=== PATIENT | male | born 1950 | race Caucasian/White ===

== ENCOUNTER 2017-01-04 14:25 | Emergency (ER) | payer OTHER, MEDICARE ==
[~2017-01-04] VITALS: Ht 167.6 cm; Wt 83.5 kg
[~2017-01-04 14:25] MED LIST: ACTOS30 MG PO; APIX5T PO; ATORVASTATIN CA40 MG PO; ELIQUIS5 MG PO; METFORMIN1000 MG PO; NORVASC 5MG TAB5 MG PO; ZESTORETIC 25 M1 TAB PO
[2017-01-04 15:25] LABS: ABSOLUTE BASOPHIL COUNT 0.1 /CUMM (0.0-0.2); ABSOLUTE EOSINOPHIL COUNT 0 /CUMM (0.0-0.7); ABSOLUTE GRANULOCYTE CT 9.8 /CUMM (1.4-6.5); ABSOLUTE LYMPH COUNT 1.5 /CUMM (1.2-3.4); BASOPHIL % 0.9 % (0.0-2.0); EOSINOPHIL % 0.1 % (0-5); GRANULOCYTE % 79.2 % (42.2-75.2); HEMATOCRIT 40.7 % (42-52); MEAN CORPUSCULAR HGB 28.3 PG (27.0-31.0); MEAN CORPUSCULAR HGB CONC 33.6 G/DL (33.0-37.0); MEAN CORPUSCULAR VOLUME 84.3 FL (80.0-94.0); MEAN PLATELET VOLUME 8.1 FL (7.4-10.4); PLATELET COUNT 277 /CUMM (130-400); RBC DISTRIBUTION WIDTH 16.1 % (11.5-14.5); RED BLOOD CELL CT 4.83 /CUMM (4.70-6.10); WHITE BLOOD CELL COUNT 12.4 /CUMM (4.8-10.8)
--- NOTE | 2017-01-04 16:31 | ED GI/GU/ABDOMINAL COMPLAINT ---
History of Present Illness General Chief Complaint: Male Genitourinary Problems Stated Complaint: ?KIDNEY STONE, HEMATURIA Source: patient, old records Exam Limitations: no limitations Vital Signs & Intake/Output Vital Signs & Intake/Output Vital Signs Date Time Temp Pulse Resp B/P B/P Pulse O2 O2 Flow FiO2 Mean Ox Delivery Rate 01/04 2046 99.6 101 20 128/71 96 Room Air 01/04 1857 99.2 94 18 136/68 97 Room Air ED Intake and Output 01/05 0000 01/04 1200 Intake Total Output Total 100 Balance -100 Output, Urine 100 Patient 184 lb Weight Weight Reported by Patient Measurement Method Allergies Coded Allergies: NO KNOWN ALLERGIES (07/12/15) Reconcile Medications Amlodipine Besylate 5 MG TABLET 1 TAB PO DAILY BP (Reported) Aspirin (Ecotrin*) 81 MG TABLET.DR 1 TAB PO DAILY HEART/BLOOD (Reported) Atorvastatin Calcium 40 MG TABLET 1 TAB PO DAILY CHOLESTEROL (Reported) Levofloxacin (Levaquin) 500 MG TABLET 1 TAB PO DAILY epididymitis Lisinopril/Hydrochlorothiazide (Lisinopril-Hctz 20-25 MG Tab) 20 MG-25 MG TABLET 1 TAB PO DAILY BP (Reported) Metformin HCl 1,000 MG TABLET 1 TAB PO BID DM (Reported) Pioglitazone HCl 30 MG TABLET 1 TAB PO DAILY DM (Reported) Sildenafil Citrate (Viagra) 100 MG TABLET 1 TAB PO PRN ED (Reported) 1 hour before sexual activity Triage Note: PT STATES HE HAS FLEX OF BLOOD IN HIS URINE STATES 30 YEARS AGO HE HAD PROSTATITIS AND IS WONDERING IF HE HAS IT AGAIN. PT C/O RIGHT FLANK PAIN STATES HE WAS FINE UNTIL WEDNESDAY. Triage Nurses Notes Reviewed? yes HPI: Patient is a 66-year-old male presents complaining of hematuria. Patient reports hematuria onset 2-3 days ago. Mild right inguinal pain and mild right testicular pain. Patient takes 81 mg of aspirin daily. Patient reports that pain mildly increases when he has a bowel movement. Patient had prostatitis 30 years ago, reports that his pain was significantly more severe at that time. Patient denies fevers, chills, nausea, vomiting, dysuria, frequency. (LAURA VALLADARES,SHELBY) Past History Travel History Traveled to [place] past 21 day No Medical History Any Pertinent Medical History? 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 MOTHER (Breast cancer). FATHER (Colon cancer at age 70). Hx Contributory? No (SHELBY VICKERS) Review of Systems Review of Systems Constitutional: Denies: chills, fever. EENTM: Reports: no symptoms. Respiratory: Denies: cough, short of breath. Cardiovascular: Denies: chest pain. GI: Reports: see HPI. Genitourinary: Reports: see HPI. Musculoskeletal: Reports: no symptoms. Denies: back pain. Skin: Reports: no symptoms. Neurological/Psychological: Reports: no symptoms. Hematologic/Endocrine: Reports: see HPI. Immunologic/Allergic: Reports: no symptoms. (SHELBY VICKERS) Physical Exam Physical Exam General Appearance: well developed/nourished, alert, awake Head: atraumatic, normal appearance Eyes: Bilateral: normal appearance, PERRL, EOMI. Ears, Nose, Throat, Mouth: hearing grossly normal, moist mucous membrane Neck: normal inspection, supple, full range of motion Respiratory: normal breath sounds, chest non-tender, no respiratory distress, lungs clear Cardiovascular: regular rate/rhythm Gastrointestinal: normal bowel sounds, soft, mild right inguinal tenderness. No palpable masses or hernias Rectal: normal inspection, prostate exam unremarkable Male Genitals: normal genitalia, mild right testicular tenderness. No epididymal tenderness Back: normal inspection, normal range of motion Extremities: normal range of motion Neurologic/Psych: no motor/sensory deficits, awake, alert, oriented x 3, normal gait, normal mood/affect Skin: intact, normal color, warm/dry Core Measures ACS in differential dx? No Severe Sepsis Present: No Septic Shock Present: No (SHELBY VICKERS) Progress Differential Diagnosis: AAA, epididymitis, orchitis, prostatitis, ureterolithiasis, urethritis, UTI/pyelo, malignancy Diagnostic Imaging: Viewed by Me: Ultrasound. Discussed w/RAD: Ultrasound. Radiology Impression: PATIENT: ANTHONY LEO PRESENT AGE: 66 PATIENT ACCOUNT NO: [id number] : 51 LOCATION: [facility] ORDERING PHYSICIAN: SHELBY VALLADARES SERVICE DATE: 01/04/17 EXAM TYPE: US - US-TESTICULAR EXAMINATION: ULTRASOUND SCROTUM CLINICAL INFORMATION: Right testicular pain COMPARISON: None. TECHNIQUE: Routine scrotal ultrasound with grayscale and spectral and color Doppler. FINDINGS: Testicle: There is homogeneous echotexture of the right and left testicle. No focal lesion. Doppler demonstrates arterial and venous vascular flow in both testicles. Right testicle : 3.8 x 2.6 x 3.5 cm. Volume 24.6 mL Left testicle: 3.8 x 2.1 x 2.9 cm. Volume 16.4 mL Epididymis: There is mild increased vascularity in the head of the right epididymis consistent with epididymitis. The size of the right and the left epididymis is normal and symmetric bilateral. Varices: There is no varices. Hydrocele: Small anechoic right-sided hydrocele. Scrotal wall: Unremarkable. IMPRESSION: 1. Normal ultrasound of right and left testicle. 2. Mild increased vascularity in the head of the right epididymis consistent with epididymitis. There is an associated small right-sided hydrocele. DICTATED BY: JORGE MALIK MD DATE/TIME DICTATED:01/04/171805 LABORER RAGS:DEN DATE/TIME TRANSCRIBED:01/04/171805 CONFIDENTIAL, DO NOT COPY WITHOUT APPROPRIATE AUTHORIZATION. <Electronically signed in Other Vendor System> SIGNED BY: JORGE MALIK MD 01/04/171811, PATIENT: ANTHONY LEO PRESENT AGE: 66 PATIENT ACCOUNT NO: [id number] : 51 LOCATION: [facility] ORDERING PHYSICIAN: SHELBY VALLADARES SERVICE DATE: 01/04/17 EXAM TYPE: CAT - CT ABD & PELVIS W/O IV CONTRAS EXAMINATION: CT ABDOMEN AND PELVIS WITHOUT CONTRAST CLINICAL INFORMATION: Hematuria. Right inguinal pain intermittently. COMPARISON: None TECHNIQUE: Multidetector volumetric imaging was performed from the superior aspect of the liver through the pubic symphysis. Sagittal and coronal reformatted images were obtained on the technologist's workstation. DLP: 389.29 mGy-cm FINDINGS: LUNG BASES: The visualized lung bases are unremarkable. LIVER, GALLBLADDER, AND BILIARY TREE: The liver is normal in size, shape, and attenuation. No focal hepatic lesion or biliary ductal dilatation is present. The gallbladder is unremarkable with no evidence of radiopaque gallstones, gallbladder wall thickening, or obvious pericholecystic inflammatory changes. PANCREAS: Unremarkable. SPLEEN: Unremarkable. ADRENAL GLANDS: Unremarkable. KIDNEYS AND URETERS: No right kidney. Pedunculated cyst at the lower pole left kidney measuring 4 cm. There are 2 small 1 mm calcifications in the left kidney mid upper pole which are associated with small cortical cyst at the midpole. No renal calculus. No hydronephrosis. Left kidney measures 14.1 x 7.4 x 6.4 cm. BLADDER: Unremarkable. GASTROINTESTINAL TRACT: The small and large bowel are unremarkable. The appendix is unremarkable. ABDOMINAL WALL: Fat- containing umbilical hernia. Defect at the umbilicus of the intra-abdominal muscular measures 2 cm transverse. The herniated fat pocket measures 5.2 x 5.1 x 5.2 cm. Small bilateral fat-containing inguinal hernias each measuring about 1.5 cm transverse. LYMPH NODES: Normal. VASCULAR: Scattered vascular calcifications of aorta and iliac vessels without aneurysm. PELVIC VISCERA: Prostate measures 4 cm transverse with small central calcification. OSSEOUS STRUCTURES: Is a little endplate degenerative changes of the dorsal spine and lumbar spine. IMPRESSION: 1. No right kidney.No calculus or hydronephrosis of left kidney. 2. Large fat- containing umbilical hernia. Small bilateral fat-containing inguinal hernias. DICTATED BY: JORGE MALIK MD DATE/TIME DICTATED:01/04/172019 LABORER RAGS :DEN DATE/TIME TRANSCRIBED:01/04/172019 CONFIDENTIAL, DO NOT COPY WITHOUT APPROPRIATE AUTHORIZATION. <Electronically signed in Other Vendor System> SIGNED BY: JORGE MALIK MD 01/04/172033 Initial ED EKG: none (SHELBY VICKERS) Plan of Care: Orders Procedure Date/time Status Add-on Test (ER Only) 01/04 1554 Active COMPREHENSIVE METABOLIC PANEL 01/04 1515 Complete CBC WITHOUT DIFFERENTIAL 01/04 1515 Complete CULTURE,URINE 01/04 1437 Active URINALYSIS 01/04 1437 Complete Laboratory Tests 01/04/17 1512: Anion Gap 14, Estimated GFR > 60, BUN/Creatinine Ratio 20.9, Glucose 266 H, Calcium 9.0, Total Bilirubin 0.9, AST 17, ALT 29, Alkaline Phosphatase 88, Total Protein 7.1, Albumin 4.0, Globulin 3.1, Albumin/Globulin Ratio 1.3, CBC w Diff NO MAN DIFF REQ, RBC 4.83, MCV 84.3, MCH 28.3, RDW 16.1 H, MPV 8.1, Gran % 79.2 H, Lymphocytes % 11.8 L, Monocytes % 8.0, Eosinophils % 0.1, Basophils % 0.9, Absolute Granulocytes 9.8 H, Absolute Lymphocytes 1.5, Absolute Monocytes 1.0 H, Absolute Eosinophils 0, Absolute Basophils 0.1, PUBS MCHC 33.6 01/04/17 1444: Urinalysis LIGHT H, Urine Color YEL, Urine Clarity HAZY H, Urine pH 6.0, Ur Specific [place] 1.015, Urine Protein 30 H, Urine Ketones NEG, Urine Nitrite NEG, Urine Bilirubin NEG, Urine Urobilinogen 0.2, Ur Leukocyte Esterase MOD H, Ur Microscopic SEDIMENT EXAMINED, Urine RBC >75 H, Urine WBC PACKD H, Ur Epithelial Cells RARE, Urine Bacteria FEW H, Urine Hemoglobin LARGE H, Urine Glucose >=1000 H Microbiology 01/04 143 URINE ROUT: Urine Culture - RECD Discussed with Dr. Breen. 1939: Results of ultrasound discussed with patient. Patient awaiting CT scan. Results of CT scan and labs discussed with patient. Patient nontoxic appearing, will start on Levaquin and have patient follow-up with his primary care doctor and have patient contact urology for outpatient follow-up. Patient to return to the emergency department if any worsening. (LAURA VALLADARES,SHELBY) Departure Departure Time of Disposition: 2041 Disposition: HOME OR SELF CARE Condition: Stable Clinical Impression Primary Impression: Epididymitis Secondary Impressions: Hematuria, Urinary tract infection Referrals: ARIANA NIELSEN,JORGE Lobo (PCP/Family) SYEDA NIELSEN,IRAIS Muñiz Additional Instructions: Follow up with your primary doctor and with Dr. Jacobsen(urologist) for further evaluation. Call in the morning for appointments. Return to the ER if fevers, increasing pain or worsening of symptoms. Departure Forms: Customer Survey General Discharge Information Prescriptions: Current Visit Scripts Levofloxacin (Levaquin) 1 TAB PO DAILY #10 TAB (SHELBY VICKERS) PA/CANCER REGISTRY COORDINATOR Co-Sign Statement Statement: ED Attending supervision documentation- [X] I saw and evaluated the patient. I have also reviewed all the pertinent lab results and diagnostic results. I agree with the findings and the plan of care as documented in the PA's/CANCER REGISTRY COORDINATOR's documentation. [] I have reviewed the ED Record and agree with the PA's/CANCER REGISTRY COORDINATOR's documentation. [] Additions or exceptions (if any) to the PAs/CANCER REGISTRY COORDINATOR's note and plan are summarized below: [] (AMAYA BREEN DO) [] (AMAYA BREEN DO)
[2017-01-04] MEDS ORDERED: ATORVASTATIN CA40 M1 PO (16:49)
[2017-01-04] MEDS ORDERED: AMLODIPINE BESYL5 M1 PO (16:49)
[2017-01-04] MEDS ORDERED: METFORMIN HCL1000 M1 PO (16:49)
[2017-01-04] MEDS ORDERED: LISINOPRIL-HCT1 EAC1 PO (16:49)
[2017-01-04] MEDS ORDERED: ASPIRIN EC81 M1 PO (16:50)
[2017-01-04] MEDS ORDERED: VIAGRA100 M1 PO (16:50)
[2017-01-04] MEDS ORDERED: PIOGLITAZONE HC30 M1 PO (16:50)
--- NOTE | 2017-01-04 18:12 | ULTRASOUND REPORT ---
EXAMINATION: ULTRASOUND SCROTUM CLINICAL INFORMATION: Right testicular pain COMPARISON: None. TECHNIQUE: Routine scrotal ultrasound with grayscale and spectral and color Doppler. FINDINGS: Testicle: There is homogeneous echotexture of the right and left testicle. No focal lesion. Doppler demonstrates arterial and venous vascular flow in both testicles. Right testicle: 3.8 x 2.6 x 3.5 cm. Volume 24.6 mL Left testicle: 3.8 x 2.1 x 2.9 cm. Volume 16.4 mL Epididymis: There is mild increased vascularity in the head of the right epididymis consistent with epididymitis. The size of the right and the left epididymis is normal and symmetric bilateral. Varices: There is no varices. Hydrocele: Small anechoic right-sided hydrocele. Scrotal wall: Unremarkable. IMPRESSION: 1. Normal ultrasound of right and left testicle. 2. Mild increased vascularity in the head of the right epididymis consistent with epididymitis. There is an associated small right-sided hydrocele.
--- NOTE | 2017-01-04 20:34 | CT SCAN REPORT ---
EXAMINATION: CT ABDOMEN AND PELVIS WITHOUT CONTRAST CLINICAL INFORMATION: Hematuria. Right inguinal pain intermittently. COMPARISON: None TECHNIQUE: Multidetector volumetric imaging was performed from the superior aspect of the liver through the pubic symphysis. Sagittal and coronal reformatted images were obtained on the technologist's workstation. DLP: 389.29 mGy-cm FINDINGS: LUNG BASES: The visualized lung bases are unremarkable. LIVER, GALLBLADDER, AND BILIARY TREE: The liver is normal in size, shape, and attenuation. No focal hepatic lesion or biliary ductal dilatation is present. The gallbladder is unremarkable with no evidence of radiopaque gallstones, gallbladder wall thickening, or obvious pericholecystic inflammatory changes. PANCREAS: Unremarkable. SPLEEN: Unremarkable. ADRENAL GLANDS: Unremarkable. KIDNEYS AND URETERS: No right kidney. Pedunculated cyst at the lower pole left kidney measuring 4 cm. There are 2 small 1 mm calcifications in the left kidney mid upper pole which are associated with small cortical cyst at the midpole. No renal calculus. No hydronephrosis. Left kidney measures 14.1 x 7.4 x 6.4 cm. BLADDER: Unremarkable. GASTROINTESTINAL TRACT: The small and large bowel are unremarkable. The appendix is unremarkable. ABDOMINAL WALL: Fat-containing umbilical hernia. Defect at the umbilicus of the intra-abdominal muscular measures 2 cm transverse. The herniated fat pocket measures 5.2 x 5.1 x 5.2 cm. Small bilateral fat-containing inguinal hernias each measuring about 1.5 cm transverse. LYMPH NODES: Normal. VASCULAR: Scattered vascular calcifications of aorta and iliac vessels without aneurysm. PELVIC VISCERA: Prostate measures 4 cm transverse with small central calcification. OSSEOUS STRUCTURES: Is a little endplate degenerative changes of the dorsal spine and lumbar spine. IMPRESSION: 1. No right kidney.No calculus or hydronephrosis of left kidney. 2. Large fat-containing umbilical hernia. Small bilateral fat-containing inguinal hernias.
[2017-01-04] MEDS ORDERED: LEVAQUIN500 M1 PO (20:44)
[2017-01-04 20:46] VITALS: BP 128/71
== END 2017-01-04 20:52 ==
LOC: ERH 14:25
PROVIDERS: Emergency Medicine
DX: N45.1 Epididymitis (principal); N39.0 Urinary tract infection, site not specified
CPT/HCPCS: 74176; 81001; 87086